=== PATIENT | male | born 1975 | race American Indian/Alaskan Native ===

== ENCOUNTER 2017-06-22 18:36 | Emergency (ER) | payer OTHER ==
[2017-06-22 18:36] VITALS: BMI 21.9
--- NOTE | 2017-06-22 19:26 | C.PDOC ---
History Of Present Illness 42 year old male with no significant PMHx presents to the ED with complaints of body aches, fever, and headache beginning this morning. Patient reports taking Aleve prior to work this morning with mild relief. Patient notes symptoms began at 1700 today and took DayQuil with some relief however fever persisted. Patient denies cough, sore throat, abdominal pain, or urinary symptoms Time Seen by Provider: 06/22/17 19:11 Chief Complaint (Nursing): Flu-like Symptoms History Per: Patient History/Exam Limitations: no limitations Onset/Duration Of Symptoms: Hrs Current Symptoms Are (Timing): Still Present Location Of Pain: Diffuse Myalgias Sick Contacts (Context): None Associated Symptoms: Fever, Myalgias. denies: Chills, Cough, Vomiting, Diarrhea Recent travel outside of the [place]: No Past Medical History Reviewed: Historical Data, Nursing Documentation, Vital Signs Vital Signs: Last Vital Signs Temp 100.0 F H 06/22/17 19:37 Pulse 95 H 06/22/17 19:37 Resp 16 06/22/17 19:37 BP 104/61 06/22/17 19:37 Pulse Ox 98 06/22/17 21:44 - [facility] ESOPHAGOGASTRODUODENOSCOPY [EGD] W/CLOSED BIOPSY (07/18/13) Family History: States: Unknown Family Hx - Social History Hx Alcohol Use: No Hx Substance Use: No - Immunization History Hx Tetanus Toxoid Vaccination: Yes Hx Influenza Vaccination: No Hx Pneumococcal Vaccination: No Review Of Systems Constitutional: Positive for: Fever, Other (body aches ). Negative for: Chills Cardiovascular: Negative for: Chest Pain, Palpitations Respiratory: Negative for: Cough, Shortness of Breath Gastrointestinal: Negative for: Nausea, Vomiting, Abdominal Pain, Diarrhea Neurological: Positive for: Headache. Negative for: Dizziness Physical Exam - Physical Exam Appears: Non-toxic, No Acute Distress Skin: Warm, Dry, No Rash Head: Atraumatic, Normacephalic, No Tenderness Eye(s): bilateral: Normal Inspection, PERRL, EOMI Ear(s): Bilateral: Normal Nose: Normal, No Discharge Oral Mucosa: Moist Throat: Normal, No Erythema, No Exudate Neck: Supple Lymphatic: No Adenopathy Chest: Symmetrical, No Deformity, No Tenderness Cardiovascular: Rhythm Regular, No Murmur Respiratory: No Rales, No Rhonchi, No Wheezing Gastrointestinal/Abdominal: Soft, No Tenderness, No Distention, No Guarding, No Rebound Extremity: Normal ROM, No Tenderness Neurological/Psych: Oriented x3 ED Course And Treatment O2 Sat by Pulse Oximetry: 98 (RA) Pulse Ox Interpretation: Normal Medical Decision Making Medical Decision Making: Influenza test was performed and was negative. Patient appears well and will be discharged home. Disposition Counseled Patient/Family Regarding: Diagnosis, Need For Followup, Rx Given - Disposition Disposition: HOME/ ROUTINE Disposition Time: 19:23 Condition: STABLE Additional Instructions: Increase PO fluids Bed rest Tylenol or motrin for fever Return to ER if worse Prescriptions: Ibuprofen [Motrin] 600 mg PO Q6H #30 tab Instructions: Viral Syndrome (ED) Forms: [facility] ([place] Citizen), Work Excuse - Clinical Impression Clinical Impression: Influenza-like illness - PA / TELECOMMUNICATIONS CONSULTANT / Resident Statement MD/DO has reviewed & agrees with the documentation as recorded. - Scribe Statement The provider has reviewed the documentation as recorded by the Carmenibevgeny Alcaraz All medical record entries made by the Carmenibevgeny were at my direction and personally dictated by me. I have reviewed the chart and agree that the record accurately reflects my personal performance of the history, physical exam, medical decision making, and the department course for this patient. I have also personally directed, reviewed, and agree with the discharge instructions and disposition.
[2017-06-22 19:43] VITALS: BP 104/61; PULSE 95; RESP 16; TEMP 100
[2017-06-22 21:40] VITALS: O2SAT 98
== END 2017-06-22 19:40 | disposition home or self-care (01) ==
LOC: C.ER 18:36
DX: J11.1 Influenza due to unidentified influenza virus with other respiratory manifestations (principal)

== ENCOUNTER 2018-09-24 08:47 | Outpatient (CLI) | payer OTHER | END 2018-09-24 08:48 | disposition home or self-care (01) | LOC: C.LAB 08:47 | DX: M65.162 Other infective (teno)synovitis, left knee (principal) ==

== ENCOUNTER 2018-10-27 17:37 | Outpatient (CLI) | payer OTHER | END 2018-10-27 17:38 | disposition home or self-care (01) | LOC: C.LAB 17:37 | DX: M65.162 Other infective (teno)synovitis, left knee (principal) ==